=== PATIENT | male | born 1990 | race Caucasian/White ===

== ENCOUNTER 2017-01-01 17:40 | Outpatient (CLI) | payer OTHER | END 2017-01-01 17:41 | disposition critical access hospital (66) | LOC: EMS 17:40 | PROVIDERS: ATTEND Surgery | DX: R51 Headache (principal); V28.4XXA Motorcycle driver injured in noncollision transport accident in traffic accident, initial encounter; Y92.413 State road as the place of occurrence of the external cause | CPT/HCPCS: A0425; A0429 ==

== ENCOUNTER 2017-01-01 18:07 | Emergency (ER) | payer OTHER ==
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
--- NOTE | 2017-01-01 18:33 | CT Preliminary Report ---
Exam: CT Head W/O IMPRESSION: Normal head CT. [facility] SITE ID: [id number]
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
[2017-01-01 18:53] VITALS: BP 130/89
== END 2017-01-01 18:53 | disposition home or self-care (01) ==
LOC: ED 18:07
DX: S06.0X1A Concussion with loss of consciousness of 30 minutes or less, initial encounter (principal); V28.4XXA Motorcycle driver injured in noncollision transport accident in traffic accident, initial encounter; M25.559 Pain in unspecified hip; M25.569 Pain in unspecified knee; R03.0 Elevated blood-pressure reading, without diagnosis of hypertension
CPT/HCPCS: 70450; 99284

== ENCOUNTER 2017-05-06 16:31 | Outpatient (CLI) | payer OTHER ==
[2017-05-06] MEDS ORDERED: GADOBUTROL 10 MMOL/10 ML VIAL IVP ONE (17:26)
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
== END 2017-05-06 16:32 | disposition home or self-care (01) ==
LOC: DI 16:31
PROVIDERS: ATTEND Student in an Organized Health Care Education/Training Program
DX: R93.0 Abnormal findings on diagnostic imaging of skull and head, not elsewhere classified (principal); Z87.820 Personal history of traumatic brain injury
CPT/HCPCS: 70553; A9585

== ENCOUNTER 2017-05-20 09:38 | Outpatient (CLI) | payer OTHER ==
--- NOTE | 2017-05-20 17:05 | MRI Report ---
EXAM: MRI THORACIC SPINE WITHOUT CONTRAST EXAM DATE: 05/20/2017 10:43 AM. CLINICAL HISTORY: By report, abnormal periventricular right matter seen on previous brain MRI. COMPARISONS: None. TECHNIQUE: Multiplanar, multisequence T1-weighted and fluid-sensitive sequences of the thoracic spine from C7 to L1 without contrast. Other: None. FINDINGS: Some of the images are degraded due to patient related motion artifact. Spinal Cord: No signal abnormality in the visualized spinal cord. Alignment: Mild dextroconvex scoliosis. Bone Marrow: Probable small hemangioma at the T10 vertebral body. Schmorl's nodes at the T7, T8, and T9 superior endplates and at the T8, T9, T10, T11 inferior endplates. No acute fracture. Disk Levels/Facets: T1-T2: Unremarkable. T2-T3: Unremarkable. T3-T4: Unremarkable. T4-T5: Unremarkable. T5-T6: Unremarkable. T6-T7: Unremarkable. T7-T8: Unremarkable. T8-T9: Unremarkable. T9-T10: Unremarkable. T10-T11: Unremarkable. T11-T12: Unremarkable. T12-L1: Unremarkable. Musculature: Normal. No edema or fatty atrophy. Other: The visualized lungs, mediastinum, and abdominal cavity are unremarkable. IMPRESSION: 1. Schmorl's nodes at multiple vertebral body endplates. 2. No abnormal thoracic cord lesions. 3. Mild dextroconvex scoliosis at the midthoracic spine. [facility] Referring Provider Line: [phone] SITE ID: [id number]
--- NOTE | 2017-05-20 18:43 | MRI Report ---
EXAM: MRI CERVICAL SPINE WITHOUT CONTRAST EXAM DATE: 05/20/2017 10:14 a.m. CLINICAL HISTORY: By report, abnormal periventricular white matter on recent brain MRI. COMPARISONS: None. TECHNIQUE: Multiplanar, multisequence T1-weighted and fluid-sensitive sequences of the cervical spine without contrast. Other: None. FINDINGS: Some of the images are degraded due to patient-related motion artifact. Neurologic Structures: The visualized posterior fossa structures are unremarkable. No signal abnormal ity in the visualized spinal cord. Alignment: Normal. No scoliosis or spondylolisthesis. Bone Marrow: No gross fractures or bone lesions. No marrow edema. Interspace Levels/Facets: C1-C2: Unremarkable. C2-C3: Unremarkable. C3-C4: Unremarkable. C4-C5: Unremarkable. C5-C6: Unremarkable. C6-C7: Minimal disk bulge with posterior annular fissure. No stenoses. C7-T1: Tiny posterior central to right paracentral disk protrusion. No stenoses. Musculature: Normal. No edema or fatty atrophy. Other: The paravertebral and prevertebral soft tissues are normal. IMPRESSION: 1. No cervical spinal cord lesions are seen. 2. Minimal disk bulge at C6-C7 and tiny disk protrusion at C7-T1. No canal or foraminal stenoses. [facility] Referring Provider Line: [phone] SITE ID: [id number]
== END 2017-05-20 09:39 | disposition home or self-care (01) ==
LOC: DI 09:38
PROVIDERS: ATTEND Student in an Organized Health Care Education/Training Program
DX: M50.23 Other cervical disc displacement, cervicothoracic region (principal); M50.823 Other cervical disc disorders at C6-C7 level; M51.44 Schmorl's nodes, thoracic region; M41.84 Other forms of scoliosis, thoracic region
CPT/HCPCS: 72141; 72146